=== PATIENT | male | born 1970 | race Caucasian/White ===

== ENCOUNTER 2018-05-11 02:50 | Inpatient (IN) | payer MEDICARE, BC ==
[2018-05-11 04:05] LABS: ADD MAN DIFF? NO
[2018-05-11] MEDS: ACETAMINOPHEN 650 MG SUPP PR (04:20)
[2018-05-11 04:28] LABS: INR 0.95; PARTIAL THROMBOPLASTIN TIME 22.1 Sec (25.0-35.0); PROTIME 12.8 Sec (11.9-14.9)
[2018-05-11 04:40] LABS: ALANINE AMINOTRANSFERASE 27 IU/L (13-69); ALBUMIN/GLOBULIN RATIO 0.75; ALKALINE PHOSPHATASE 119 IU/L (42-121); ANION GAP 17 (8-16); ASPARTATE AMINO TRANSFERASE 36 IU/L (15-46); BILIRUBIN,INDIRECT 0.1 mg/dl (0-1.1); BILIRUBIN,TOTAL 0.1 mg/dl (0.2-1.3); BLOOD UREA NITROGEN 30 mg/dl (7-20); CALCIUM 10.1 mg/dl (8.4-10.2); CARBON DIOXIDE 38 mmol/L (21-31); CHLORIDE 103 mmol/L (97-110); CREATININE 0.47 mg/dl (0.61-1.24); GLUCOSE 358 mg/dl (70-220); POTASSIUM 4.5 mmol/L (3.5-5.1); SODIUM 153 mmol/L (135-144); TOTAL PROTEIN 9.3 g/dl (6.1-8.1)
[2018-05-11 04:42] LABS: LACTIC ACID 3.4 mmol/L (0.5-2.0)
[2018-05-11 04:50] LABS: TROPONIN-I 0.012 ng/ml (0.000-0.120)
[2018-05-11 04:56] LABS: ADD UMIC YES; UR ASCORBIC ACID 40 mg/dL (NEGATIVE); UR BILIRUBIN (Dip) NEGATIVE (NEGATIVE); UR BLOOD (Dip) 1+ mg/dL (NEGATIVE); UR CLARITY TURBID (CLEAR); UR COLOR BLUE (YELLOW); UR GLUCOSE (Dip) NEGATIVE (NEGATIVE); UR KETONES (Dip) NEGATIVE (NEGATIVE); UR LEUKOCYTE ESTERASE (Dip) 2+ Leu/ul (NEGATIVE); UR NITRITE (Dip) NEGATIVE (NEGATIVE); UR RBC 0 /HPF (0-5); UR TOTAL PROTEIN (Dip) 2+ mg/dl (NEGATIVE); UR UROBILINOGEN (Dip) NEGATIVE (NEGATIVE); UR WBC 0 /HPF (0-5)
[2018-05-11 05:44] LABS: WHITE BLOOD COUNT 19.4 10^3/ul (4.8-10.8)
[2018-05-11 05:45] LABS: BASOPHIL # 0.1 10^3/ul (0.0-0.1); BASOPHILS % 0.3 % (0.0-2.0); EOSINOPHILS % 0.1 % (0.0-7.0); HEMATOCRIT 44.5 % (42.0-52.0); HEMOGLOBIN 13.1 g/dl (14.0-18.0); LYMPHOCYTES # 2.4 10^3/ul (0.8-2.9); LYMPHOCYTES % 12.2 % (15.0-51.0); MEAN CORPUSCULAR HEMOGLOBIN 25.4 pg (29.0-33.0); MEAN CORPUSCULAR HGB CONC 29.4 g/dl (32.0-37.0); MEAN CORPUSCULAR VOLUME 86.4 fl (82.0-101.0); MEAN PLATELET VOLUME 12.3 fl (7.4-10.4); MONOCYTES % 5.1 % (0.0-11.0); NEUTROPHIL # 15.8 10^3/ul (1.6-7.5); NEUTROPHILS % 81.3 % (39.0-77.0); NUCLEATED RED BLOOD CELLS # 0.1 10^3/ul (0.0-0.0); NUCLEATED RED BLOOD CELLS% 0.4 /100WBC (0.0-0.0); PLATELET COUNT 294 10^3/UL (140-415); RED BLOOD COUNT 5.15 10^6/ul (4.70-6.10); RED CELL DISTRIBUTION WIDTH 14.9 % (11.5-14.5)
[2018-05-11] MEDS: SODIUM CHLORIDE 0.9% 1L BAG IV* (05:57)
[2018-05-11] MEDS: MEROPENEM 1 GM/50ML(PMX) 50 ML IVPB (05:59)
[2018-05-11] MEDS: CEFEPIME 2GM/50 ML (PMX) 50 ML IVPB (05:59)
[2018-05-11] MEDS: KETOROLAC 30 MG INJ IV (06:40)
[2018-05-11] MEDS ORDERED: NACL 0.9% 3 ML SYG IV (07:00)
[2018-05-11] MEDS ORDERED: ACETAMINOPHEN 325 MG TAB PO (07:00)
[2018-05-11] MEDS ORDERED: IPRATROPIUM (HFA) 12.9 GM INHALER INH (07:00)
[2018-05-11 07:13] LABS: LACTIC ACID 2.2 mmol/L (0.5-2.0)
[2018-05-11 08:40] LABS: LACTIC ACID 1.9 mmol/L (0.5-2.0)
[2018-05-11] MEDS: DEXTROSE 5%-0.45% NACL 1,000 ML IV (09:25)
[2018-05-11] MEDS: CARBOXYMETHYLCELLULOSE 0.5% 0.4 ML OPH BOTH EYES ×4 (09:25→22:48)
[2018-05-11] MEDS: ASPIRIN (EC) 81 MG TAB PO (10:46)
[2018-05-11] MEDS ORDERED: GLUCOSE GEL 15 GRAM TUBE BUCCAL (11:00)
[2018-05-11] MEDS ORDERED: DEXTROSE 50% 50 ML SYRINGE IV ×4 (11:00→15:30)
[2018-05-11] MEDS ORDERED: GLUCAGON 1 MG INJ IM (11:00)
[2018-05-11] MEDS ORDERED: GLUCOSE GEL 15 GRAM TUBE PO ×2 (11:00)
[2018-05-11] MEDS: NORepinephrine 8MG/250 ML (PMX 250 ML IV (11:09)
[2018-05-11] MEDS: DEXTROSE 5% 1,000 ML IV ×2 (11:19→20:22)
[2018-05-11] MEDS ORDERED: IPRATROPIUM (NEB) 0.5 MG/2.5 ML AMP INH (11:30)
[2018-05-11] MEDS: ENOXAPARIN 40 MG/0.4 ML SYG SC (11:35)
[2018-05-11] MEDS: PANTOPRAZOLE (EC) 40 MG TAB PO ×2 (11:35→21:30)
[2018-05-11] MEDS: LINEZOLID 600 MG/D5W (PMX) 300 ML IVPB ×2 (11:36→21:30)
[2018-05-11] MEDS: SUCRALFATE 1 GM TAB GTB ×2 (11:37→18:55)
[2018-05-11] MEDS: INSULIN GLARGINE [LANTus] (100 UNITS/ML) SYG SC (11:37)
[2018-05-11] MEDS: LEVETIRACETAM 750 MG TAB GTB (11:37)
[2018-05-11] MEDS: INSULIN ASPART [NOVOLOG] 3 ML PEN SC (13:01)
[2018-05-11] MEDS ORDERED: METOPROLOL 25 MG TAB GTB (14:00)
[2018-05-11 16:26] LABS: HEMOGLOBIN A1C 7.8 % (0-5.9)
[2018-05-11] MEDS: ACCU-CHEK XX ×7 (18:00→23:06)
[2018-05-11] MEDS: INSULIN HUMAN REGULAR 100 UNIT in SOD CHLORIDE 0.9% 99 ML IV ×2 (18:45→20:22)
[2018-05-11] MEDS: ATORVASTATIN 20 MG TAB GTB (21:30)
[2018-05-11] MEDS: CEFEPIME 1GM/50 ML (PMX) 50 ML IVPB (21:30)
[2018-05-11] MEDS: HEPARIN 5,000 UNIT/0.5 ML VIAL SC (21:38)
[2018-05-11] MEDS: LEVETIRACETAM (100 MG/ML) 5ML CUP GTB (21:47)
[2018-05-12] MEDS: ACCU-CHEK XX ×24 (00:03→23:00)
[2018-05-12] MEDS: SUCRALFATE 1 GM TAB GTB ×4 (00:08→17:59)
[2018-05-12] MEDS ORDERED: ACCU-CHEK XX (02:00)
[2018-05-12 05:09] LABS: ADD MAN DIFF? NO
[2018-05-12 05:16] LABS: WHITE BLOOD COUNT 7.8 10^3/ul (4.8-10.8)
[2018-05-12 05:16] LABS: ABNORMAL IP MESSAGE 1; BASOPHILS % 0.3 % (0.0-2.0); EOSINOPHILS # 0.1 10^3/ul (0.0-0.5); EOSINOPHILS % 1.7 % (0.0-7.0); HEMATOCRIT 34.7 % (42.0-52.0); IMMATURE GRANS #M 0.06 10^3/ul; IMMATURE GRANS % (M) 0.8 %; LYMPHOCYTES % 12.9 % (15.0-51.0); MEAN CORPUSCULAR HEMOGLOBIN 24.5 pg (29.0-33.0); MEAN CORPUSCULAR HGB CONC 28.8 g/dl (32.0-37.0); MEAN PLATELET VOLUME 12.4 fl (7.4-10.4); MONOCYTE # 0.4 10^3/ul (0.3-0.9); MONOCYTES % 5.6 % (0.0-11.0); NEUTROPHIL # 6.2 10^3/ul (1.6-7.5); NEUTROPHILS % 78.7 % (39.0-77.0); PLATELET COUNT 176 10^3/UL (140-415); POSITIVE DIFF @See below; RED BLOOD COUNT 4.08 10^6/ul (4.70-6.10)
[2018-05-12 05:29] LABS: ALANINE AMINOTRANSFERASE 34 IU/L (13-69); ALBUMIN 2.8 g/dl (3.3-4.9); ALKALINE PHOSPHATASE 52 IU/L (42-121); ANION GAP 8 (8-16); ASPARTATE AMINO TRANSFERASE 27 IU/L (15-46); BILIRUBIN,INDIRECT 0.2 mg/dl (0-1.1); BILIRUBIN,TOTAL 0.2 mg/dl (0.2-1.3); BLOOD UREA NITROGEN 19 mg/dl (7-20); CARBON DIOXIDE 34 mmol/L (21-31); CHLORIDE 103 mmol/L (97-110); CREATININE 0.31 mg/dl (0.61-1.24); GLUCOSE 203 mg/dl (70-220); MAGNESIUM 2.1 mg/dl (1.7-2.5); SODIUM 142 mmol/L (135-144); TOTAL PROTEIN 6.3 g/dl (6.1-8.1)
[2018-05-12 05:36] LABS: POTASSIUM 2.6 mmol/L (3.5-5.1)
[2018-05-12] MEDS: DEXTROSE 5% 1,000 ML IV (05:54)
[2018-05-12] MEDS: INSULIN HUMAN REGULAR 100 UNIT in SOD CHLORIDE 0.9% 99 ML IV (05:59)
[2018-05-12] MEDS: LEVOTHYROXINE 25 MCG TAB GTB (06:01)
[2018-05-12] MEDS: POTASSIUM CHLORIDE 50 ML IVPB ×3 (06:54→12:01)
[2018-05-12 07:33] LABS: Allen Test ACCEPTAB; Arterial Base Excess 5.1 mmol/L (-3.0-3); Arterial Blood Gas Oxygen Sat 95.3 mmHG (95.0-98.0); Arterial COHb 0.7 % (0.0-3.0); Arterial Fraction of Oxyhgb 94.3 % (93.0-99.0); Arterial MetHb 0.3 % (0.0-1.5); Arterial Total Hemglobin 11.3 g/dl (12.0-18.0); Arterial pCO2 51.5 mmhg (35-45); MODE VENT - AC; Site Right Radial
[2018-05-12] MEDS ORDERED: FERROUS SULFATE 220 MG/5 ML ML GTB (09:00)
[2018-05-12] MEDS: FERROUS SULFATE 60 MG/ML 5ML CUP GTB (09:08)
[2018-05-12] MEDS: CEFEPIME 1GM/50 ML (PMX) 50 ML IVPB ×2 (09:09→20:41)
[2018-05-12] MEDS: LEVETIRACETAM (100 MG/ML) 5ML CUP GTB ×2 (09:09→20:41)
[2018-05-12] MEDS: LINEZOLID 600 MG/D5W (PMX) 300 ML IVPB ×2 (09:10→20:41)
[2018-05-12] MEDS: ASPIRIN (EC) 81 MG TAB PO (09:10)
[2018-05-12] MEDS: PANTOPRAZOLE (EC) 40 MG TAB PO ×2 (09:13→20:42)
[2018-05-12] MEDS: CARBOXYMETHYLCELLULOSE 0.5% 0.4 ML OPH BOTH EYES ×4 (09:45→20:42)
[2018-05-12] MEDS: HEPARIN 5,000 UNIT/0.5 ML VIAL SC ×2 (09:46→20:50)
[2018-05-12 10:37] LABS: B-TYPE NATRIURETIC PEPTIDE 276 PG/ML (0-125)
[2018-05-12] MEDS: SOD CHLORIDE 0.45% 1,000 ML IV ×2 (11:03→22:50)
[2018-05-12] MEDS ORDERED: hydrALAzine 20 MG INJ (15:02)
[2018-05-12] MEDS: ATORVASTATIN 20 MG TAB GTB (20:42)
[2018-05-13] MEDS: ACCU-CHEK XX ×24 (00:01→23:00)
[2018-05-13] MEDS: SUCRALFATE 1 GM TAB GTB ×4 (00:01→17:44)
[2018-05-13] MEDS: SOD CHLORIDE 0.45% 1,000 ML IV ×2 (01:26→17:44)
[2018-05-13] MEDS: INSULIN HUMAN REGULAR 100 UNIT in SOD CHLORIDE 0.9% 99 ML IV ×2 (02:50→20:13)
[2018-05-13 06:21] LABS: ADD MAN DIFF? NO
[2018-05-13 06:23] LABS: BASOPHILS % 0.2 % (0.0-2.0); EOSINOPHILS # 0.1 10^3/ul (0.0-0.5); EOSINOPHILS % 2.2 % (0.0-7.0); HEMATOCRIT 35.2 % (42.0-52.0); HEMOGLOBIN 10.5 g/dl (14.0-18.0); LYMPHOCYTES % 20.1 % (15.0-51.0); MEAN CORPUSCULAR HEMOGLOBIN 24.5 pg (29.0-33.0); MEAN CORPUSCULAR HGB CONC 29.8 g/dl (32.0-37.0); MEAN CORPUSCULAR VOLUME 82.2 fl (82.0-101.0); MEAN PLATELET VOLUME 11.9 fl (7.4-10.4); MONOCYTE # 0.3 10^3/ul (0.3-0.9); MONOCYTES % 5.6 % (0.0-11.0); NEUTROPHIL # 3.5 10^3/ul (1.6-7.5); NEUTROPHILS % 70.5 % (39.0-77.0); PLATELET COUNT 177 10^3/UL (140-415); RED BLOOD COUNT 4.28 10^6/ul (4.70-6.10); RED CELL DISTRIBUTION WIDTH 14.9 % (11.5-14.5)
[2018-05-13] MEDS: LEVOTHYROXINE 25 MCG TAB GTB (06:23)
[2018-05-13 07:22] LABS: ANION GAP 12 (8-16); BLOOD UREA NITROGEN 12 mg/dl (7-20); CALCIUM 8.2 mg/dl (8.4-10.2); CARBON DIOXIDE 30 mmol/L (21-31); CHLORIDE 105 mmol/L (97-110); CREATININE 0.42 mg/dl (0.61-1.24); GLUCOSE 164 mg/dl (70-220); POTASSIUM 3.5 mmol/L (3.5-5.1); SODIUM 143 mmol/L (135-144)
[2018-05-13] MEDS: CEFEPIME 1GM/50 ML (PMX) 50 ML IVPB ×2 (09:08→21:03)
[2018-05-13] MEDS: LINEZOLID 600 MG/D5W (PMX) 300 ML IVPB ×2 (09:08→21:03)
[2018-05-13] MEDS: FERROUS SULFATE 60 MG/ML 5ML CUP GTB (09:09)
[2018-05-13] MEDS: PANTOPRAZOLE (EC) 40 MG TAB PO (09:09)
[2018-05-13] MEDS: ASPIRIN (EC) 81 MG TAB PO (09:09)
[2018-05-13] MEDS: HEPARIN 5,000 UNIT/0.5 ML VIAL SC ×2 (09:14→21:24)
[2018-05-13] MEDS: LEVETIRACETAM (100 MG/ML) 5ML CUP GTB ×2 (09:17→21:03)
[2018-05-13] MEDS: CARBOXYMETHYLCELLULOSE 0.5% 0.4 ML OPH BOTH EYES ×4 (09:18→21:36)
[2018-05-13] MEDS: NYSTATIN SUSP 5 ML CUP PO ×4 (11:15→21:03)
[2018-05-13] MEDS: hydrALAzine 20 MG INJ IV (13:09)
[2018-05-13] MEDS: LIDOCAINE 1% (MPF) 5 ML VIAL SC (14:00)
[2018-05-13] MEDS: SOD CHLORIDE 0.9% 100 ML (16:30)
[2018-05-13] MEDS: ATORVASTATIN 20 MG TAB GTB (21:12)
[2018-05-14] MEDS: ACCU-CHEK XX ×9 (00:40→21:12)
[2018-05-14] MEDS: SUCRALFATE 1 GM TAB GTB ×4 (00:56→17:17)
[2018-05-14 05:12] LABS: ADD MAN DIFF? NO
[2018-05-14 05:14] LABS: WHITE BLOOD COUNT 5.1 10^3/ul (4.8-10.8)
[2018-05-14 05:14] LABS: BASOPHILS % 0.4 % (0.0-2.0); EOSINOPHILS # 0.1 10^3/ul (0.0-0.5); EOSINOPHILS % 1.6 % (0.0-7.0); HEMATOCRIT 34.2 % (42.0-52.0); HEMOGLOBIN 10.3 g/dl (14.0-18.0); LYMPHOCYTES # 1.2 10^3/ul (0.8-2.9); LYMPHOCYTES % 22.5 % (15.0-51.0); MEAN CORPUSCULAR HGB CONC 30.1 g/dl (32.0-37.0); MEAN PLATELET VOLUME 12.3 fl (7.4-10.4); MONOCYTE # 0.3 10^3/ul (0.3-0.9); MONOCYTES % 5.1 % (0.0-11.0); NEUTROPHIL # 3.5 10^3/ul (1.6-7.5); NEUTROPHILS % 68.6 % (39.0-77.0); PLATELET COUNT 197 10^3/UL (140-415); RED BLOOD COUNT 4.12 10^6/ul (4.70-6.10); RED CELL DISTRIBUTION WIDTH 15.3 % (11.5-14.5)
[2018-05-14 05:53] LABS: ANION GAP 8 (8-16); BLOOD UREA NITROGEN 9 mg/dl (7-20); CALCIUM 8.2 mg/dl (8.4-10.2); CARBON DIOXIDE 31 mmol/L (21-31); CHLORIDE 107 mmol/L (97-110); CREATININE 0.37 mg/dl (0.61-1.24); GLUCOSE 137 mg/dl (70-220); POTASSIUM 3.2 mmol/L (3.5-5.1); SODIUM 143 mmol/L (135-144)
[2018-05-14] MEDS: PANTOPRAZOLE 40 MG INJ IV (06:30)
[2018-05-14] MEDS: LEVOTHYROXINE 25 MCG TAB GTB (06:30)
[2018-05-14] MEDS: SOD CHLORIDE 0.45% 1,000 ML IV (08:54)
[2018-05-14] MEDS ORDERED: POTASSIUM CHLORIDE 100 ML IVPB (09:00)
[2018-05-14] MEDS: POTASSIUM CHLORIDE 100 ML IVPB ×3 (09:43→14:06)
[2018-05-14] MEDS: CEFEPIME 1GM/50 ML (PMX) 50 ML IVPB ×2 (09:46→20:45)
[2018-05-14] MEDS: CARBOXYMETHYLCELLULOSE 0.5% 0.4 ML OPH BOTH EYES ×3 (09:52→17:17)
[2018-05-14] MEDS: FERROUS SULFATE 60 MG/ML 5ML CUP GTB (09:53)
[2018-05-14] MEDS: LEVETIRACETAM (100 MG/ML) 5ML CUP GTB ×2 (09:53→20:45)
[2018-05-14] MEDS: ASPIRIN (EC) 81 MG TAB PO (09:54)
[2018-05-14] MEDS: NYSTATIN SUSP 5 ML CUP PO ×4 (09:54→20:45)
[2018-05-14] MEDS: LINEZOLID 600 MG/D5W (PMX) 300 ML IVPB (09:54)
[2018-05-14] MEDS: HEPARIN 5,000 UNIT/0.5 ML VIAL SC ×2 (09:55→21:18)
[2018-05-14] MEDS ORDERED: GLUCOSE GEL 15 GRAM TUBE BUCCAL (10:00)
[2018-05-14] MEDS ORDERED: GLUCAGON 1 MG INJ IM (10:00)
[2018-05-14] MEDS ORDERED: GLUCOSE GEL 15 GRAM TUBE PO ×2 (10:00)
[2018-05-14] MEDS ORDERED: DEXTROSE 50% 50 ML SYRINGE IV ×2 (10:00)
[2018-05-14] MEDS: INSULIN GLARGINE [LANTus] (100 UNITS/ML) SYG SC (10:42)
[2018-05-14] MEDS: INSULIN ASPART [NOVOLOG] 3 ML PEN SC ×2 (11:30→17:32)
[2018-05-14] MEDS: AMPICILLIN 500 MG CAP GTB (17:17)
[2018-05-14] MEDS: ATORVASTATIN 20 MG TAB GTB (20:45)
[2018-05-14] MEDS ORDERED: INSULIN ASPART [NOVOLOG] 3 ML PEN SC ×2 (21:00)
[2018-05-14] MEDS: Insulin NOVOLOG SS MODERATE Algorithm(NPO/TPN/ENTERAL FEEDS) SC (21:57)
[2018-05-15] MEDS: SUCRALFATE 1 GM TAB GTB ×4 (01:10→17:40)
[2018-05-15] MEDS: AMPICILLIN 500 MG CAP GTB ×4 (01:10→17:40)
[2018-05-15] MEDS: Insulin NOVOLOG SS MODERATE Algorithm(NPO/TPN/ENTERAL FEEDS) SC ×6 (01:14→21:00)
[2018-05-15] MEDS: ACCU-CHEK XX ×6 (01:14→21:00)
[2018-05-15] MEDS ORDERED: ACCU-CHEK XX (02:00)
[2018-05-15] MEDS: SOD CHLORIDE 0.45% 1,000 ML IV ×2 (04:41→08:45)
[2018-05-15] MEDS: CARBOXYMETHYLCELLULOSE 0.5% 0.4 ML OPH BOTH EYES ×5 (04:42→22:44)
[2018-05-15 05:33] LABS: ADD MAN DIFF? NO
[2018-05-15 05:36] LABS: BASOPHIL # 0.1 10^3/ul (0.0-0.1); BASOPHILS % 0.9 % (0.0-2.0); EOSINOPHILS # 0.2 10^3/ul (0.0-0.5); EOSINOPHILS % 2.7 % (0.0-7.0); HEMATOCRIT 38.1 % (42.0-52.0); HEMOGLOBIN 11.2 g/dl (14.0-18.0); LYMPHOCYTES # 1.4 10^3/ul (0.8-2.9); LYMPHOCYTES % 24.6 % (15.0-51.0); MEAN CORPUSCULAR HEMOGLOBIN 24.6 pg (29.0-33.0); MEAN CORPUSCULAR HGB CONC 29.4 g/dl (32.0-37.0); MEAN CORPUSCULAR VOLUME 83.7 fl (82.0-101.0); MEAN PLATELET VOLUME 12.2 fl (7.4-10.4); MONOCYTE # 0.3 10^3/ul (0.3-0.9); MONOCYTES % 5.2 % (0.0-11.0); NEUTROPHIL # 3.5 10^3/ul (1.6-7.5); NEUTROPHILS % 61.8 % (39.0-77.0); NUCLEATED RED BLOOD CELLS% 0.4 /100WBC (0.0-0.0); PLATELET COUNT 143 10^3/UL (140-415); RED BLOOD COUNT 4.55 10^6/ul (4.70-6.10); RED CELL DISTRIBUTION WIDTH 15.6 % (11.5-14.5)
[2018-05-15 05:36] LABS: WHITE BLOOD COUNT 5.6 10^3/ul (4.8-10.8)
[2018-05-15 06:03] LABS: ANION GAP 12 (8-16); BLOOD UREA NITROGEN 8 mg/dl (7-20); CALCIUM 8.5 mg/dl (8.4-10.2); CARBON DIOXIDE 26 mmol/L (21-31); CHLORIDE 109 mmol/L (97-110); CREATININE 0.31 mg/dl (0.61-1.24); GLUCOSE 170 mg/dl (70-220); POTASSIUM 3.9 mmol/L (3.5-5.1); SODIUM 143 mmol/L (135-144)
[2018-05-15 06:17] LABS: PHOSPHORUS 3.5 mg/dl (2.5-4.9)
[2018-05-15] MEDS: LEVOTHYROXINE 25 MCG TAB GTB (06:52)
[2018-05-15] MEDS: PANTOPRAZOLE 40 MG INJ IV (06:53)
[2018-05-15] MEDS: FERROUS SULFATE 60 MG/ML 5ML CUP GTB (08:43)
[2018-05-15] MEDS: LEVETIRACETAM (100 MG/ML) 5ML CUP GTB ×2 (08:44→22:20)
[2018-05-15] MEDS: CEFEPIME 1GM/50 ML (PMX) 50 ML IVPB ×2 (08:44→22:21)
[2018-05-15] MEDS: ASPIRIN (EC) 81 MG TAB PO (08:44)
[2018-05-15] MEDS: NYSTATIN SUSP 5 ML CUP PO ×4 (08:44→22:20)
[2018-05-15] MEDS: HEPARIN 5,000 UNIT/0.5 ML VIAL SC ×2 (08:49→22:23)
[2018-05-15] MEDS: INSULIN GLARGINE [LANTus] (100 UNITS/ML) SYG SC (11:28)
[2018-05-15] MEDS: ATORVASTATIN 20 MG TAB GTB (22:20)
[2018-05-16] MEDS: LORAZEPAM 2 MG INJ IV ×2 (00:49→02:11)
[2018-05-16] MEDS: AMPICILLIN 500 MG CAP GTB ×4 (00:56→18:13)
[2018-05-16] MEDS: SUCRALFATE 1 GM TAB GTB ×5 (00:56→21:54)
[2018-05-16] MEDS ORDERED: LORAZEPAM 2 MG INJ IV (01:00)
[2018-05-16] MEDS: ACCU-CHEK XX ×6 (01:48→21:00)
[2018-05-16] MEDS: Insulin NOVOLOG SS MODERATE Algorithm(NPO/TPN/ENTERAL FEEDS) SC ×6 (01:48→21:00)
[2018-05-16] MEDS ORDERED: PHENOBARBITAL 65 MG INJ IV ×2 (04:30)
[2018-05-16] MEDS: PANTOPRAZOLE 40 MG INJ IV (06:25)
[2018-05-16] MEDS: SOD CHLORIDE 0.45% 1,000 ML IV ×2 (06:26→17:40)
[2018-05-16] MEDS: LEVOTHYROXINE 25 MCG TAB GTB (06:39)
[2018-05-16] MEDS: SOD CHLORIDE 0.9% IV (06:53)
[2018-05-16] MEDS: PHENOBARBITAL IV (06:53)
[2018-05-16 07:12] LABS: ANION GAP 10 (8-16); BLOOD UREA NITROGEN 10 mg/dl (7-20); CALCIUM 8.6 mg/dl (8.4-10.2); CARBON DIOXIDE 28 mmol/L (21-31); CHLORIDE 107 mmol/L (97-110); CREATININE 0.28 mg/dl (0.61-1.24); GLUCOSE 136 mg/dl (70-220); POTASSIUM 5.2 mmol/L (3.5-5.1); SODIUM 140 mmol/L (135-144)
[2018-05-16] MEDS: NYSTATIN SUSP 5 ML CUP PO ×4 (08:59→21:54)
[2018-05-16] MEDS: CEFEPIME 1GM/50 ML (PMX) 50 ML IVPB ×2 (08:59→21:53)
[2018-05-16] MEDS: FERROUS SULFATE 60 MG/ML 5ML CUP GTB (08:59)
[2018-05-16] MEDS: LEVETIRACETAM (100 MG/ML) 5ML CUP GTB ×2 (08:59→21:54)
[2018-05-16] MEDS: ASPIRIN (EC) 81 MG TAB PO (09:00)
[2018-05-16] MEDS: CARBOXYMETHYLCELLULOSE 0.5% 0.4 ML OPH BOTH EYES ×4 (09:00→21:54)
[2018-05-16] MEDS: HEPARIN 5,000 UNIT/0.5 ML VIAL SC ×2 (09:03→22:03)
[2018-05-16] MEDS: PHENOBARBITAL 32.4 MG TAB PEG ×2 (10:22→22:01)
[2018-05-16] MEDS: INSULIN GLARGINE [LANTus] (100 UNITS/ML) SYG SC (10:55)
[2018-05-16] MEDS: NA POLYST SULFON 15 GM/60 ML BTL PO (13:49)
[2018-05-16 14:40] LABS: ADD MAN DIFF? NO
[2018-05-16 14:42] LABS: ABNORMAL IP MESSAGE 1; BASOPHILS % 0.6 % (0.0-2.0); EOSINOPHILS # 0.2 10^3/ul (0.0-0.5); EOSINOPHILS % 3.3 % (0.0-7.0); HEMOGLOBIN 10.6 g/dl (14.0-18.0); LYMPHOCYTES # 1.5 10^3/ul (0.8-2.9); LYMPHOCYTES % 22.6 % (15.0-51.0); MEAN CORPUSCULAR HEMOGLOBIN 24.9 pg (29.0-33.0); MEAN CORPUSCULAR HGB CONC 29.4 g/dl (32.0-37.0); MEAN CORPUSCULAR VOLUME 84.7 fl (82.0-101.0); MEAN PLATELET VOLUME 11.2 fl (7.4-10.4); MONOCYTE # 0.5 10^3/ul (0.3-0.9); MONOCYTES % 6.7 % (0.0-11.0); NEUTROPHIL # 4.1 10^3/ul (1.6-7.5); NEUTROPHILS % 60.6 % (39.0-77.0); NUCLEATED RED BLOOD CELLS% 0.4 /100WBC (0.0-0.0); PLATELET COUNT 141 10^3/UL (140-415); POSITIVE DIFF @See below; RED BLOOD COUNT 4.25 10^6/ul (4.70-6.10); RED CELL DISTRIBUTION WIDTH 16.4 % (11.5-14.5)
[2018-05-16 14:42] LABS: WHITE BLOOD COUNT 6.7 10^3/ul (4.8-10.8)
[2018-05-16] MEDS: ATORVASTATIN 20 MG TAB GTB (21:55)
[2018-05-17] MEDS: Insulin NOVOLOG SS MODERATE Algorithm(NPO/TPN/ENTERAL FEEDS) SC ×6 (01:00→21:00)
[2018-05-17] MEDS: ACCU-CHEK XX ×6 (01:00→22:11)
[2018-05-17] MEDS: SOD CHLORIDE 0.45% 1,000 ML IV (04:32)
[2018-05-17] MEDS: SUCRALFATE 1 GM TAB GTB ×3 (04:33→16:54)
[2018-05-17] MEDS: AMPICILLIN 500 MG CAP GTB ×4 (04:33→16:54)
[2018-05-17] MEDS: PANTOPRAZOLE 40 MG INJ IV (04:33)
[2018-05-17] MEDS: LEVOTHYROXINE 25 MCG TAB GTB (04:33)
[2018-05-17 06:09] LABS: ADD MAN DIFF? NO
[2018-05-17 06:17] LABS: ABNORMAL IP MESSAGE 1; BASOPHILS % 0.5 % (0.0-2.0); EOSINOPHILS # 0.3 10^3/ul (0.0-0.5); EOSINOPHILS % 4.2 % (0.0-7.0); HEMOGLOBIN 9.6 g/dl (14.0-18.0); LYMPHOCYTES # 1.6 10^3/ul (0.8-2.9); LYMPHOCYTES % 24.2 % (15.0-51.0); MEAN CORPUSCULAR HEMOGLOBIN 24.4 pg (29.0-33.0); MEAN CORPUSCULAR HGB CONC 29.1 g/dl (32.0-37.0); MEAN PLATELET VOLUME 11.4 fl (7.4-10.4); MONOCYTE # 0.4 10^3/ul (0.3-0.9); MONOCYTES % 5.9 % (0.0-11.0); NEUTROPHIL # 3.8 10^3/ul (1.6-7.5); NEUTROPHILS % 58.7 % (39.0-77.0); NUCLEATED RED BLOOD CELLS% 0.3 /100WBC (0.0-0.0); PLATELET COUNT 192 10^3/UL (140-415); POSITIVE DIFF @See below; RED BLOOD COUNT 3.93 10^6/ul (4.70-6.10); RED CELL DISTRIBUTION WIDTH 16.6 % (11.5-14.5)
[2018-05-17 06:17] LABS: WHITE BLOOD COUNT 6.4 10^3/ul (4.8-10.8)
[2018-05-17 06:47] LABS: ANION GAP 10 (8-16); BLOOD UREA NITROGEN 10 mg/dl (7-20); CARBON DIOXIDE 27 mmol/L (21-31); CHLORIDE 106 mmol/L (97-110); CREATININE 0.27 mg/dl (0.61-1.24); GLUCOSE 129 mg/dl (70-220); POTASSIUM 3.9 mmol/L (3.5-5.1); SODIUM 139 mmol/L (135-144)
[2018-05-17] MEDS: LEVETIRACETAM (100 MG/ML) 5ML CUP GTB ×2 (08:45→22:10)
[2018-05-17] MEDS: NYSTATIN SUSP 5 ML CUP PO ×4 (08:45→22:11)
[2018-05-17] MEDS: ASPIRIN (EC) 81 MG TAB PO (08:45)
[2018-05-17] MEDS: CEFEPIME 1GM/50 ML (PMX) 50 ML IVPB ×2 (08:45→22:11)
[2018-05-17] MEDS: FERROUS SULFATE 60 MG/ML 5ML CUP GTB (08:45)
[2018-05-17] MEDS: HEPARIN 5,000 UNIT/0.5 ML VIAL SC ×2 (08:57→22:34)
[2018-05-17] MEDS: INSULIN GLARGINE [LANTus] (100 UNITS/ML) SYG SC (08:58)
[2018-05-17] MEDS: CARBOXYMETHYLCELLULOSE 0.5% 0.4 ML OPH BOTH EYES ×4 (08:58→22:00)
[2018-05-17] MEDS: PHENOBARBITAL 32.4 MG TAB PEG ×2 (08:58→22:10)
[2018-05-17] MEDS: ATORVASTATIN 20 MG TAB GTB (22:11)
[2018-05-18] MEDS: ACCU-CHEK XX ×6 (00:40→21:35)
[2018-05-18] MEDS: SUCRALFATE 1 GM TAB GTB ×5 (00:40→23:59)
[2018-05-18] MEDS: AMPICILLIN 500 MG CAP GTB ×5 (00:40→23:58)
[2018-05-18] MEDS: Insulin NOVOLOG SS MODERATE Algorithm(NPO/TPN/ENTERAL FEEDS) SC ×6 (00:40→21:00)
[2018-05-18] MEDS: LEVOTHYROXINE 25 MCG TAB GTB (06:02)
[2018-05-18] MEDS: LEVETIRACETAM (100 MG/ML) 5ML CUP GTB ×2 (09:02→21:34)
[2018-05-18] MEDS: CEFEPIME 1GM/50 ML (PMX) 50 ML IVPB ×2 (09:02→21:33)
[2018-05-18] MEDS: FERROUS SULFATE 60 MG/ML 5ML CUP GTB (09:02)
[2018-05-18] MEDS: NYSTATIN SUSP 5 ML CUP PO ×4 (09:02→21:34)
[2018-05-18] MEDS: ASPIRIN (EC) 81 MG TAB PO (09:03)
[2018-05-18] MEDS: HEPARIN 5,000 UNIT/0.5 ML VIAL SC ×2 (09:07→22:16)
[2018-05-18] MEDS: INSULIN GLARGINE [LANTus] (100 UNITS/ML) SYG SC (09:08)
[2018-05-18] MEDS: PHENOBARBITAL 32.4 MG TAB PEG ×2 (09:26→21:44)
[2018-05-18] MEDS: CARBOXYMETHYLCELLULOSE 0.5% 0.4 ML OPH BOTH EYES ×4 (09:26→21:34)
[2018-05-18] MEDS: ATORVASTATIN 20 MG TAB GTB (21:34)
[2018-05-19] MEDS: Insulin NOVOLOG SS MODERATE Algorithm(NPO/TPN/ENTERAL FEEDS) SC ×6 (01:00→21:00)
[2018-05-19] MEDS: ACCU-CHEK XX ×6 (01:52→21:51)
[2018-05-19] MEDS: SUCRALFATE 1 GM TAB GTB ×3 (05:11→17:27)
[2018-05-19] MEDS: AMPICILLIN 500 MG CAP GTB ×3 (05:11→17:27)
[2018-05-19] MEDS: LEVOTHYROXINE 25 MCG TAB GTB (06:18)
[2018-05-19] MEDS: CARBOXYMETHYLCELLULOSE 0.5% 0.4 ML OPH BOTH EYES ×4 (08:22→20:58)
[2018-05-19] MEDS: NYSTATIN SUSP 5 ML CUP PO ×4 (08:23→20:56)
[2018-05-19] MEDS: LEVETIRACETAM (100 MG/ML) 5ML CUP GTB ×2 (08:23→20:57)
[2018-05-19] MEDS: FERROUS SULFATE 60 MG/ML 5ML CUP GTB (08:23)
[2018-05-19] MEDS: ASPIRIN (EC) 81 MG TAB PO (08:23)
[2018-05-19] MEDS: CEFEPIME 1GM/50 ML (PMX) 50 ML IVPB ×2 (08:23→20:56)
[2018-05-19] MEDS: INSULIN GLARGINE [LANTus] (100 UNITS/ML) SYG SC (08:30)
[2018-05-19] MEDS: HEPARIN 5,000 UNIT/0.5 ML VIAL SC ×2 (08:31→21:45)
[2018-05-19] MEDS: PHENOBARBITAL 32.4 MG TAB PEG ×2 (09:16→20:57)
[2018-05-19] MEDS: FOSFOMYCIN 3 GM PACKET PO (17:27)
[2018-05-19] MEDS: ATORVASTATIN 20 MG TAB GTB (20:57)
[2018-05-20] MEDS: AMPICILLIN 500 MG CAP GTB ×3 (00:33→12:15)
[2018-05-20] MEDS: SUCRALFATE 1 GM TAB GTB ×4 (00:33→18:02)
[2018-05-20] MEDS: Insulin NOVOLOG SS MODERATE Algorithm(NPO/TPN/ENTERAL FEEDS) SC ×6 (00:54→21:00)
[2018-05-20] MEDS: ACCU-CHEK XX ×6 (00:55→21:00)
[2018-05-20] MEDS: LEVOTHYROXINE 25 MCG TAB GTB (05:15)
[2018-05-20] MEDS: LEVETIRACETAM (100 MG/ML) 5ML CUP GTB ×2 (08:14→21:36)
[2018-05-20] MEDS: NYSTATIN SUSP 5 ML CUP PO ×4 (08:14→21:36)
[2018-05-20] MEDS: FERROUS SULFATE 60 MG/ML 5ML CUP GTB (08:14)
[2018-05-20] MEDS: CEFEPIME 1GM/50 ML (PMX) 50 ML IVPB (08:14)
[2018-05-20] MEDS: ASPIRIN (EC) 81 MG TAB PO (08:15)
[2018-05-20] MEDS: INSULIN GLARGINE [LANTus] (100 UNITS/ML) SYG SC (08:16)
[2018-05-20] MEDS: HEPARIN 5,000 UNIT/0.5 ML VIAL SC ×2 (08:34→21:52)
[2018-05-20] MEDS: CARBOXYMETHYLCELLULOSE 0.5% 0.4 ML OPH BOTH EYES ×4 (09:00→21:00)
[2018-05-20] MEDS: PHENOBARBITAL 32.4 MG TAB PEG ×2 (09:26→21:37)
[2018-05-20] MEDS: ATORVASTATIN 20 MG TAB GTB (21:37)
[2018-05-21] MEDS: SUCRALFATE 1 GM TAB GTB ×5 (00:57→23:02)
[2018-05-21] MEDS: Insulin NOVOLOG SS MODERATE Algorithm(NPO/TPN/ENTERAL FEEDS) SC ×5 (00:57→17:00)
[2018-05-21] MEDS: ACCU-CHEK XX ×5 (01:00→17:21)
[2018-05-21] MEDS: LEVOTHYROXINE 25 MCG TAB GTB (06:09)
[2018-05-21] MEDS: ASPIRIN (EC) 81 MG TAB PO (08:22)
[2018-05-21] MEDS: LEVETIRACETAM (100 MG/ML) 5ML CUP GTB ×2 (08:22→21:28)
[2018-05-21] MEDS: NYSTATIN SUSP 5 ML CUP PO ×4 (08:22→21:29)
[2018-05-21] MEDS: FERROUS SULFATE 60 MG/ML 5ML CUP GTB (08:22)
[2018-05-21] MEDS: CARBOXYMETHYLCELLULOSE 0.5% 0.4 ML OPH BOTH EYES ×4 (08:23→21:36)
[2018-05-21] MEDS: HEPARIN 5,000 UNIT/0.5 ML VIAL SC ×2 (08:46→21:56)
[2018-05-21] MEDS: INSULIN GLARGINE [LANTus] (100 UNITS/ML) SYG SC (08:46)
[2018-05-21] MEDS: PHENOBARBITAL 32.4 MG TAB PEG ×2 (08:56→21:29)
[2018-05-21] MEDS: ATORVASTATIN 20 MG TAB GTB (21:29)
[2018-05-21] MEDS: INSULIN ASPART [NOVOLOG] 3 ML PEN SC (23:07)
[2018-05-22] MEDS: INSULIN ASPART [NOVOLOG] 3 ML PEN SC ×4 (06:00→23:39)
[2018-05-22] MEDS: LEVOTHYROXINE 25 MCG TAB GTB (06:04)
[2018-05-22] MEDS: SUCRALFATE 1 GM TAB GTB ×4 (06:04→23:38)
[2018-05-22] MEDS: NYSTATIN SUSP 5 ML CUP PO ×4 (08:13→20:46)
[2018-05-22] MEDS: FERROUS SULFATE 60 MG/ML 5ML CUP GTB (08:13)
[2018-05-22] MEDS: LEVETIRACETAM (100 MG/ML) 5ML CUP GTB ×2 (08:13→20:46)
[2018-05-22] MEDS: ASPIRIN (EC) 81 MG TAB PO (08:14)
[2018-05-22] MEDS: CARBOXYMETHYLCELLULOSE 0.5% 0.4 ML OPH BOTH EYES ×4 (08:14→21:00)
[2018-05-22] MEDS: PHENOBARBITAL 32.4 MG TAB PEG ×2 (08:14→20:46)
[2018-05-22] MEDS: INSULIN GLARGINE [LANTus] (100 UNITS/ML) SYG SC (08:33)
[2018-05-22] MEDS: HEPARIN 5,000 UNIT/0.5 ML VIAL SC ×2 (08:42→20:57)
[2018-05-22] MEDS: ATORVASTATIN 20 MG TAB GTB (20:46)
[2018-05-23] MEDS: INSULIN ASPART [NOVOLOG] 3 ML PEN SC ×3 (06:00→17:45)
[2018-05-23] MEDS: LEVOTHYROXINE 25 MCG TAB GTB (06:11)
[2018-05-23] MEDS: SUCRALFATE 1 GM TAB GTB ×3 (06:11→17:45)
[2018-05-23] MEDS: PHENOBARBITAL 32.4 MG TAB PEG ×2 (08:26→20:34)
[2018-05-23] MEDS: NYSTATIN SUSP 5 ML CUP PO ×4 (08:26→20:34)
[2018-05-23] MEDS: FERROUS SULFATE 60 MG/ML 5ML CUP GTB (08:26)
[2018-05-23] MEDS: LEVETIRACETAM (100 MG/ML) 5ML CUP GTB ×2 (08:26→20:33)
[2018-05-23] MEDS: CARBOXYMETHYLCELLULOSE 0.5% 0.4 ML OPH BOTH EYES ×4 (08:26→20:34)
[2018-05-23] MEDS: ASPIRIN (EC) 81 MG TAB PO (08:27)
[2018-05-23] MEDS: HEPARIN 5,000 UNIT/0.5 ML VIAL SC ×2 (08:46→20:43)
[2018-05-23] MEDS: INSULIN GLARGINE [LANTus] (100 UNITS/ML) SYG SC (08:46)
[2018-05-23] MEDS: ATORVASTATIN 20 MG TAB GTB (20:34)
[2018-05-24] MEDS: SUCRALFATE 1 GM TAB GTB ×4 (00:03→18:06)
[2018-05-24] MEDS: INSULIN ASPART [NOVOLOG] 3 ML PEN SC ×4 (05:05→17:25)
[2018-05-24] MEDS: LEVOTHYROXINE 25 MCG TAB GTB (06:02)
[2018-05-24] MEDS: CARBOXYMETHYLCELLULOSE 0.5% 0.4 ML OPH BOTH EYES ×4 (09:00→21:55)
[2018-05-24] MEDS: PHENOBARBITAL 32.4 MG TAB PEG ×2 (09:03→21:51)
[2018-05-24] MEDS: ASPIRIN (EC) 81 MG TAB PO (09:03)
[2018-05-24] MEDS: FERROUS SULFATE 60 MG/ML 5ML CUP GTB (09:04)
[2018-05-24] MEDS: LEVETIRACETAM (100 MG/ML) 5ML CUP GTB ×2 (09:04→21:51)
[2018-05-24] MEDS: NYSTATIN SUSP 5 ML CUP PO ×4 (09:04→21:51)
[2018-05-24] MEDS: INSULIN GLARGINE [LANTus] (100 UNITS/ML) SYG SC (09:11)
[2018-05-24] MEDS: HEPARIN 5,000 UNIT/0.5 ML VIAL SC ×2 (09:38→21:55)
[2018-05-24] MEDS: ATORVASTATIN 20 MG TAB GTB (21:50)
[2018-05-25] MEDS: SUCRALFATE 1 GM TAB GTB ×4 (00:57→18:14)
[2018-05-25] MEDS: INSULIN ASPART [NOVOLOG] 3 ML PEN SC ×4 (06:00→18:00)
[2018-05-25] MEDS: LEVOTHYROXINE 25 MCG TAB GTB (06:44)
[2018-05-25] MEDS: INSULIN GLARGINE [LANTus] (100 UNITS/ML) SYG SC (08:07)
[2018-05-25] MEDS: NYSTATIN SUSP 5 ML CUP PO ×4 (09:02→21:19)
[2018-05-25] MEDS: ASPIRIN (EC) 81 MG TAB PO (09:02)
[2018-05-25] MEDS: FERROUS SULFATE 60 MG/ML 5ML CUP GTB (09:02)
[2018-05-25] MEDS: LEVETIRACETAM (100 MG/ML) 5ML CUP GTB ×2 (09:02→21:19)
[2018-05-25] MEDS: PHENOBARBITAL 32.4 MG TAB PEG ×2 (09:02→21:18)
[2018-05-25] MEDS: HEPARIN 5,000 UNIT/0.5 ML VIAL SC ×2 (09:10→21:21)
[2018-05-25] MEDS: CARBOXYMETHYLCELLULOSE 0.5% 0.4 ML OPH BOTH EYES ×4 (09:14→21:18)
[2018-05-25] MEDS: ATORVASTATIN 20 MG TAB GTB (21:19)
[2018-05-26] MEDS: SUCRALFATE 1 GM TAB GTB ×4 (00:11→17:51)
[2018-05-26] MEDS: INSULIN ASPART [NOVOLOG] 3 ML PEN SC ×4 (06:00→17:51)
[2018-05-26] MEDS: LEVOTHYROXINE 25 MCG TAB GTB (06:25)
[2018-05-26] MEDS: INSULIN GLARGINE [LANTus] (100 UNITS/ML) SYG SC (08:00)
[2018-05-26] MEDS: LEVETIRACETAM (100 MG/ML) 5ML CUP GTB ×2 (09:41→21:23)
[2018-05-26] MEDS: NYSTATIN SUSP 5 ML CUP PO ×4 (09:41→21:23)
[2018-05-26] MEDS: ASPIRIN (EC) 81 MG TAB PO (09:41)
[2018-05-26] MEDS: FERROUS SULFATE 60 MG/ML 5ML CUP GTB (09:41)
[2018-05-26] MEDS: PHENOBARBITAL 32.4 MG TAB PEG ×2 (09:44→21:24)
[2018-05-26] MEDS: CARBOXYMETHYLCELLULOSE 0.5% 0.4 ML OPH BOTH EYES ×4 (09:45→21:23)
[2018-05-26] MEDS: HEPARIN 5,000 UNIT/0.5 ML VIAL SC ×2 (09:54→21:27)
[2018-05-26] MEDS: SCOPOLAMINE 1.5 MG PATCH TRANSDERM (12:30)
[2018-05-26] MEDS: ATORVASTATIN 20 MG TAB GTB (21:23)
[2018-05-27] MEDS: SUCRALFATE 1 GM TAB GTB ×4 (00:47→17:25)
[2018-05-27] MEDS: INSULIN ASPART [NOVOLOG] 3 ML PEN SC ×4 (06:00→17:28)
[2018-05-27] MEDS: LEVOTHYROXINE 25 MCG TAB GTB (06:09)
[2018-05-27] MEDS: FERROUS SULFATE 60 MG/ML 5ML CUP GTB (09:23)
[2018-05-27] MEDS: LEVETIRACETAM (100 MG/ML) 5ML CUP GTB ×2 (09:23→21:33)
[2018-05-27] MEDS: NYSTATIN SUSP 5 ML CUP PO ×4 (09:23→21:33)
[2018-05-27] MEDS: ASPIRIN (EC) 81 MG TAB PO (09:23)
[2018-05-27] MEDS: CARBOXYMETHYLCELLULOSE 0.5% 0.4 ML OPH BOTH EYES ×3 (09:24→16:54)
[2018-05-27] MEDS: HEPARIN 5,000 UNIT/0.5 ML VIAL SC ×2 (09:25→21:53)
[2018-05-27] MEDS: INSULIN GLARGINE [LANTus] (100 UNITS/ML) SYG SC (09:25)
[2018-05-27] MEDS: PHENOBARBITAL 32.4 MG TAB PEG ×2 (09:37→22:07)
[2018-05-27] MEDS: ATORVASTATIN 20 MG TAB GTB (21:34)
[2018-05-28] MEDS: SUCRALFATE 1 GM TAB GTB ×3 (00:34→11:49)
[2018-05-28] MEDS: CARBOXYMETHYLCELLULOSE 0.5% 0.4 ML OPH BOTH EYES ×3 (00:34→12:11)
[2018-05-28] MEDS: LEVOTHYROXINE 25 MCG TAB GTB (05:47)
[2018-05-28] MEDS: INSULIN ASPART [NOVOLOG] 3 ML PEN SC ×3 (05:50→11:49)
[2018-05-28] MEDS: INSULIN GLARGINE [LANTus] (100 UNITS/ML) SYG SC (08:28)
[2018-05-28] MEDS: ASPIRIN (EC) 81 MG TAB PO (08:29)
[2018-05-28] MEDS: PHENOBARBITAL 32.4 MG TAB PEG (08:29)
[2018-05-28] MEDS: NYSTATIN SUSP 5 ML CUP PO ×2 (08:29→13:00)
[2018-05-28] MEDS: FERROUS SULFATE 60 MG/ML 5ML CUP GTB (08:29)
[2018-05-28] MEDS: LEVETIRACETAM (100 MG/ML) 5ML CUP GTB (08:29)
[2018-05-28] MEDS: HEPARIN 5,000 UNIT/0.5 ML VIAL SC (08:40)
[2018-05-28] MEDS: LORAZEPAM 2 MG INJ IV (16:31)
== END 2018-05-28 17:00 | DRG 870 ==
LOC: 6WM 05-15 18:25 → E/R 02:50 → ICU 12:36
PROC: 5A1955Z Respiratory Ventilation, Greater than 96 Consecutive Hours (ICD-10-PCS; principal; 2018-05-11)
PROC: 06HY33Z Insertion of Infusion Device into Lower Vein, Percutaneous Approach (ICD-10-PCS; 2018-05-11)
PROC: 05H833Z Insertion of Infusion Device into Left Axillary Vein, Percutaneous Approach (ICD-10-PCS; 2018-05-13)
DX: A41.9 Sepsis, unspecified organism (principal); R65.21 Severe sepsis with septic shock; J15.1 Pneumonia due to Pseudomonas; N39.0 Urinary tract infection, site not specified; E87.0 Hyperosmolality and hypernatremia; J96.10 Chronic respiratory failure, unspecified whether with hypoxia or hypercapnia; Z93.0 Tracheostomy status; G93.1 Anoxic brain damage, not elsewhere classified; K52.1 Toxic gastroenteritis and colitis; E03.9 Hypothyroidism, unspecified; E11.9 Type 2 diabetes mellitus without complications; E86.0 Dehydration; E11.621 Type 2 diabetes mellitus with foot ulcer; I11.0 Hypertensive heart disease with heart failure; I50.9 Heart failure, unspecified; L97.509 Non-pressure chronic ulcer of other part of unspecified foot with unspecified severity; G40.909 Epilepsy, unspecified, not intractable, without status epilepticus; B96.4 Proteus (mirabilis) (morganii) as the cause of diseases classified elsewhere; Z93.1 Gastrostomy status; Z99.11 Dependence on respirator [ventilator] status; Z86.74 Personal history of sudden cardiac arrest; Z79.4 Long term (current) use of insulin
CPT/HCPCS: 36415; 36569; 36600; 71045; 74018; 74176; 76937; 80048; 80053; 81001; 82803; 82962; 83036; 83605; 83735; 83880; 84100; 84484; 85025; 85610; 85730; 87040; 87045; 87070; 87075; 87081; 87086; 89220; 93005; 93306; 93971; 94002; 94003; 99291-25